=== PATIENT | female | born 1960 | race Two or more races ===

== ENCOUNTER 2019-10-29 17:33 | Emergency (ER) | payer OTHER ==
[~2019-10-29] VITALS: Ht 162.6 cm; Wt 68.5 kg
[2019-10-29 17:33] VITALS: BP 121/81
--- NOTE | 2019-10-29 17:57 | NUR ---
SEEN AND EXAMINED BY .
[2019-10-29] MEDS ORDERED: TDAP [DIPH/PERTUSSIS/TET] 0.5 ML VIAL IM ONE ×2 (18:00→18:04)
--- NOTE | 2019-10-29 18:05 | NUR ---
WOUND CLEANING DONE BY CLINICAL TRIAL HEAD.
--- NOTE | 2019-10-29 18:34 | NUR ---
Patient discharged to home in stable condition. Written and verbal after care instructions given. Patient verbalizes understanding of instruction.
== END 2019-10-29 18:35 | disposition home or self-care (01) ==
LOC: ER 17:40
DX: S91.311A Laceration without foreign body, right foot, initial encounter (principal); Z60.2 Problems related to living alone; W22.8XXA Striking against or struck by other objects, initial encounter; Y93.89 Activity, other specified; Y92.89 Other specified places as the place of occurrence of the external cause; Y99.8 Other external cause status
CPT/HCPCS: 90471; 90715; 99283; A6403

== ENCOUNTER 2019-11-16 23:07 | Emergency (ER) | payer OTHER ==
[~2019-11-16] VITALS: Ht 149.9 cm; Wt 61.2 kg
[2019-11-16 23:10] VITALS: BP 146/69
--- NOTE | 2019-11-16 23:46 | NUR ---
PT WAS PROVIDED W/ SHORT LEG SPLINT AND CRUTCHES. INSTRUCTIONS GIVEN TO THE PT AND THE FAMILY W/ UNDERSTANDING .
--- NOTE | 2019-11-17 00:13 | NUR ---
Patient discharged to home in stable condition. Written and verbal after care instructions given. Patient verbalizes understanding of instruction.
== END 2019-11-17 00:13 | disposition home or self-care (01) ==
LOC: ER 23:07
DX: S86.011A Strain of right Achilles tendon, initial encounter (principal); Z60.2 Problems related to living alone; W22.8XXA Striking against or struck by other objects, initial encounter; Y93.89 Activity, other specified; Y92.89 Other specified places as the place of occurrence of the external cause; Y99.8 Other external cause status